=== PATIENT | male | born 1985 | race Two or more races ===

== ENCOUNTER 2020-05-07 15:56 | Emergency (ER) | payer SELFPAY ==
[~2020-05-07] VITALS: Ht 182.9 cm; Wt 96.2 kg
[2020-05-07 16:31] VITALS: BP 139/90
[2020-05-07] MEDS ORDERED: LIDOCAINE /MPF 1% VIAL 5 ML VIAL ONE (16:39)
[2020-05-07] MEDS ORDERED: TDAP [DIPH/PERTUSSIS/TET] 0.5 ML VIAL IM ONE ×2 (17:00→17:13)
[2020-05-07] MEDS ORDERED: ACETAMINOPHEN 325 MG TABLET PO ONE (17:00)
[2020-05-07] MEDS ORDERED: ACETAMINOPHEN ES 500 MG TABLET ONE (17:13)
== END 2020-05-07 17:30 | disposition home or self-care (01) ==
LOC: ER 15:58
DX: S61.213A Laceration without foreign body of left middle finger without damage to nail, initial encounter (principal); W26.8XXA Contact with other sharp object(s), not elsewhere classified, initial encounter; Y93.89 Activity, other specified; Y92.89 Other specified places as the place of occurrence of the external cause; Y99.8 Other external cause status
CPT/HCPCS: 12001; 90471; 90715; 99283; J3490

== ENCOUNTER 2020-05-14 13:17 | Emergency (ER) | payer SELFPAY ==
[~2020-05-14] VITALS: Ht 182.9 cm; Wt 97.5 kg
[2020-05-14 14:37] VITALS: BP 127/69
--- NOTE | 2020-05-14 14:37 | NUR ---
Patient discharged to home in stable condition. Written and verbal after care instructions given. Patient verbalizes understanding of instruction.
== END 2020-05-14 14:37 | disposition home or self-care (01) ==
LOC: ER 13:20
DX: S61.211D Laceration without foreign body of left index finger without damage to nail, subsequent encounter (principal); W26.8XXD Contact with other sharp object(s), not elsewhere classified, subsequent encounter